=== PATIENT | male | born 1980 | race Caucasian/White ===

== ENCOUNTER 2023-07-21 06:51 | Emergency (ER) | payer OTHER ==
[~2023-07-21] VITALS: Ht 180.3 cm; Wt 80.7 kg
[2023-07-21] MEDS ORDERED: ACETAMINOPHEN 500 MG TAB PO ONE (13:25)
[2023-07-21] MEDS ORDERED: predniSONE 20 MG TAB PO ONE (13:25)
[2023-07-21] MEDS ORDERED: HYDR-3713 PO (14:03)
[2023-07-21 14:24] VITALS: BP 113/66; TEMP 98.5; O2SAT 100
== END 2023-07-21 14:26 | disposition home or self-care (01) ==
LOC: M ED 06:51
DX: M75.91 Shoulder lesion, unspecified, right shoulder (principal)
CPT/HCPCS: 73030; 99283; J7512

== ENCOUNTER 2023-12-23 14:40 | Emergency (ER) | payer MEDICAID, OTHER, SELFPAY ==
[~2023-12-23] VITALS: Ht 180.3 cm; Wt 87.2 kg
[~2023-12-23 14:40] MED LIST: HYDR-3713 PO
[2023-12-23] MEDS ORDERED: EXCETAB32 PO (15:26)
[2023-12-23 15:36] LABS: BASO % 0.6 % (0.0-1.0); EOS % 0.3 % (0.0-3.0); HEMATOCRIT 41.9 % (42.0-52.0); HEMOGLOBIN 13.9 g/dl (13.5-17.5); LYMPH # 0.6 10^3/uL (1.5-5.0); LYMPH % 16.9 % (24.0-44.0); MEAN CORPUSCULAR HEMOGLOBIN 28.4 pg (27.0-33.0); MEAN CORPUSCULAR HGB CONC 33.2 g/dl (32.0-36.5); MEAN CORPUSCULAR VOLUME 85.7 fl (80.0-96.0); MONO % 28.2 % (2.0-8.0); NEUTROPHILS # 1.9 10^3/uL (1.5-8.5); NEUTROPHILS % 53.7 % (36.0-66.0); PLATELET COUNT, AUTOMATED 147 10^3/uL (150-450); RED BLOOD COUNT 4.89 10^6/uL (4.30-6.10); WHITE BLOOD COUNT 3.4 10^3/uL (4.0-10.0)
[2023-12-23 16:04] LABS: LIPASE 36 U/L (12-53)
[2023-12-23 16:06] LABS: ALBUMIN 3.6 G/DL (3.2-5.2); ALKALINE PHOSPHATASE 60 U/L (46-116); ALT/SGPT 35 U/L (7.0-40); AST/SGOT 33 U/L (<34); BILIRUBIN,DIRECT 0.3 MG/DL (<0.4); BILIRUBIN,TOTAL 0.7 MG/DL (0.3-1.2); BLOOD UREA NITROGEN 11 MG/DL (9-23); CALCIUM LEVEL 8.3 MG/DL (8.5-10.1); CARBON DIOXIDE LEVEL 30 MMOL/L (20-31); CHLORIDE LEVEL 101 MMOL/L (98-107); CREATININE FOR GFR 0.83 MG/DL (0.70-1.30); GLOMERULAR FILTRATION RATE > 60.0 (>60); GLUCOSE, FASTING 96 MG/DL (60-100); POTASSIUM SERUM 3.7 MMOL/L (3.5-5.1); SODIUM LEVEL 137 MMOL/L (136-145); TOTAL PROTEIN 6.8 G/DL (5.7-8.2)
[2023-12-23] MEDS ORDERED: ONDANSETRON 4MG 2ML VIAL IV ONE (16:10)
[2023-12-23] MEDS ORDERED: NS 1,000 ML IV ONE (16:10)
[2023-12-23 16:15] LABS: RSV AMPLIFICATION NEGATIVE (NEGATIVE)
[2023-12-23] MEDS ORDERED: ONDA4TAB6 PO (17:02)
[2023-12-23 17:10] VITALS: BP 119/79; TEMP 98.6; O2SAT 98
== END 2023-12-23 17:23 | disposition home or self-care (01) ==
LOC: M ED 14:40
DX: J10.1 Influenza due to other identified influenza virus with other respiratory manifestations (principal); F10.10 Alcohol abuse, uncomplicated; Z79.82 Long term (current) use of aspirin; Z79.83 Long term (current) use of bisphosphonates
CPT/HCPCS: 80047; 80048; 80076; 83690; 85025; 87631; 87880; 96361; 96374; 99283; J2405

== ENCOUNTER 2024-10-03 12:11 | Emergency (ER) | payer MEDICAID, OTHER ==
[~2024-10-03] VITALS: Ht 180.3 cm; Wt 82.7 kg
[~2024-10-03 12:11] MED LIST changes: +EXCETAB32 PO; +ONDA-282 PO
[2024-10-03 12:17] VITALS: BP 110/77; TEMP 97.5; O2SAT 98
== END 2024-10-03 16:41 | disposition left against medical advice (07) ==
LOC: M ED 12:11
DX: R09.81 Nasal congestion (principal); R43.8 Other disturbances of smell and taste; Z82.3 Family history of stroke; Z53.9 Procedure and treatment not carried out, unspecified reason

== ENCOUNTER 2025-07-15 16:56 | Emergency (ER) | payer OTHER ==
[~2025-07-15] VITALS: Ht 180.3 cm; Wt 92.1 kg
[2025-07-15 20:54] LABS: BASO # 0.1 10^3/uL (0.0-0.2); BASO % 0.9 % (0.0-1.0); EOS # 0.2 10^3/uL (0.0-0.5); EOS % 2.8 % (0.0-3.0); LYMPH # 2.1 10^3/uL (1.5-5.0); LYMPH % 32.0 % (24.0-44.0); MONO # 0.9 10^3/uL (0.0-0.8); MONO % 13.5 % (2.0-8.0); NEUTROPHILS # 3.3 10^3/uL (1.5-8.5); NEUTROPHILS % 50.6 % (36.0-66.0); PLATELET COUNT, AUTOMATED 263 10^3/uL (150-450)
[2025-07-15] MEDS ORDERED: OMEP40CA4 PO (22:22)
[2025-07-15 22:50] VITALS: BP 122/84; TEMP 98.3; O2SAT 98
== END 2025-07-15 22:59 | disposition home or self-care (01) ==
LOC: M ED 16:56
DX: D17.21 Benign lipomatous neoplasm of skin and subcutaneous tissue of right arm (principal); K21.9 Gastro-esophageal reflux disease without esophagitis

== ENCOUNTER 2025-11-07 09:49 | Emergency (ER) | payer OTHER ==
[~2025-11-07] VITALS: Ht 180.3 cm; Wt 89.1 kg
[~2025-11-07 09:49] MED LIST changes: +OMEP40CA4 PO
[2025-11-07 10:51] LABS: APPEARANCE, URINE CLEAR (CLEAR); BACTERIA, URINE AUTO NEGATIVE (NEGATIVE); BILIRUBIN, URINE AUTO NEGATIVE (NEGATIVE); BLOOD, URINE BLOOD NEGATIVE (NEGATIVE); GLUCOSE, URINE (UA) AUTO NEGATIVE (NEGATIVE); KETONE, URINE AUTO NEGATIVE (NEGATIVE); LEUKOCYTE ESTERASE, URINE AUTO NEGATIVE (NEGATIVE); MUCUS, URINE SMALL (NEGATIVE); NITRITE, URINE AUTO NEGATIVE (NEGATIVE); PROTEIN, URINE AUTO 1+ mg/dL (NEGATIVE); RBC, URINE AUTO 1 /HPF (0-3); SPECIFIC GRAVITY URINE AUTO 1.024 (1.002-1.035); SQUAMOUS EPITHELIAL CELL UR AU 0 /HPF (0-6); UROBILINOGEN, URINE AUTO 4.0 mg/dL (0.0-2.0); WBC, URINE AUTO 1 /HPF (0-3)
[2025-11-07 11:01] LABS: BASO # 0.0 10^3/uL (0.0-0.2); BASO % 0.5 % (0.0-1.0); EOS # 0.0 10^3/uL (0.0-0.5); EOS % 0.5 % (0.0-3.0); LYMPH # 0.9 10^3/uL (1.5-5.0); LYMPH % 22.7 % (24.0-44.0); MONO # 0.8 10^3/uL (0.0-0.8); MONO % 19.8 % (2.0-8.0); NEUTROPHILS # 2.2 10^3/uL (1.5-8.5); NEUTROPHILS % 56.2 % (36.0-66.0); PLATELET COUNT, AUTOMATED 209 10^3/uL (150-450)
[2025-11-07 11:42] LABS: ALT/SGPT 119 U/L (7.0-40); AST/SGOT 106 U/L (<34); CALCIUM LEVEL 8.4 MG/DL (8.5-10.1); CARBON DIOXIDE LEVEL 30 MMOL/L (20-31); CHLORIDE LEVEL 101 MMOL/L (98-107); CREATININE FOR GFR 0.89 MG/DL (0.70-1.30); GLOMERULAR FILTRATION RATE > 90.0 (>60); POTASSIUM SERUM 4.0 MMOL/L (3.5-5.1); SODIUM LEVEL 139 MMOL/L (136-145)
[2025-11-07 11:46] LABS: CPK CREATINE PHOSPHOKINASE 632 U/L (46-171)
[2025-11-07 11:51] VITALS: BP 116/70; TEMP 99.2; O2SAT 97
== END 2025-11-07 12:04 | disposition home or self-care (01) ==
LOC: M ED 09:49
DX: J09.X2 Influenza due to identified novel influenza A virus with other respiratory manifestations (principal)